=== PATIENT | male | born 1995 | race Two or more races ===

== ENCOUNTER 2022-06-15 10:26 | Emergency (ER) | payer BC ==
[~2022-06-15] VITALS: Ht 182.9 cm; Wt 88.5 kg
[2022-06-15 10:57] VITALS: BP 140/81
[2022-06-15] MEDS ORDERED: SULF1TAB47 PO (11:14)
--- NOTE | 2022-06-15 11:19 | NUR ---
Patient discharged to home in stable condition. Written and verbal after care instructions given. Patient verbalizes understanding of instruction.
[2022-06-15] MEDS ORDERED: CEPH500C2 PO (20:43)
== END 2022-06-15 11:19 | disposition home or self-care (01) ==
LOC: ER 10:35
DX: L03.114 Cellulitis of left upper limb (principal)

== ENCOUNTER 2022-06-15 19:12 | Emergency (ER) | payer BC ==
[~2022-06-15] VITALS: Ht 167.6 cm; Wt 88.5 kg
[~2022-06-15 19:12] MED LIST: SULF1TAB47 PO
[2022-06-15 20:28] VITALS: BP 131/70
[2022-06-15] MEDS ORDERED: CEPH500C2 PO (20:43)
[2022-06-15] MEDS ORDERED: CEFTRIAXONE 1 G VIAL ONE (20:51)
[2022-06-15] MEDS ORDERED: CEFTRIAXONE 1 G VIAL IM ONE (21:00)
== END 2022-06-15 21:01 | disposition home or self-care (01) ==
LOC: ER 19:14
DX: L03.114 Cellulitis of left upper limb (principal); Z60.2 Problems related to living alone
CPT/HCPCS: 99283; 96372; J0696

== ENCOUNTER 2022-07-30 11:13 | Emergency (ER) | payer BC, MEDICAID ==
[~2022-07-30] VITALS: Ht 182.9 cm; Wt 88.5 kg
[~2022-07-30 11:13] MED LIST changes: +CEPH500C2 PO
[2022-07-30 11:21] VITALS: BP 150/81
--- NOTE | 2022-07-30 11:22 | NUR ---
THE PATIENT BIBS FOR C/O PENILE RASH AND ITCH x 3 DAYS. WILL CONTINUE TO MONITOR THE PATIENT.
--- NOTE | 2022-07-30 11:26 | NUR ---
DR ATKINS AT THE BEDSIDE
[2022-07-30] MEDS ORDERED: CLOT12CR TP (11:33)
[2022-07-30] MEDS ORDERED: ACYC200C31 PO (11:33)
== END 2022-07-30 11:39 | disposition home or self-care (01) ==
LOC: ER 11:21
DX: A64 Unspecified sexually transmitted disease (principal); Z60.2 Problems related to living alone; Z79.899 Other long term (current) drug therapy

== ENCOUNTER 2022-10-03 12:21 | Emergency (ER) | payer MEDICAID, OTHER ==
[~2022-10-03] VITALS: Ht 182.9 cm; Wt 88.5 kg
[~2022-10-03 12:21] MED LIST changes: +ACYC200C31 PO; +CLOT12CR TP
[2022-10-03 12:53] VITALS: BP 134/72
--- NOTE | 2022-10-03 12:55 | NUR ---
BIBS W/ C/O RASH ON INGUINAL AREA. TO ER BED 16.
[2022-10-03] MEDS ORDERED: ACYC200C31 PO (13:06)
--- NOTE | 2022-10-03 13:45 | NUR ---
Patient discharged to home in stable condition. Written and verbal after care instructions given. Patient verbalizes understanding of instruction.
== END 2022-10-03 13:45 | disposition home or self-care (01) ==
LOC: ER 12:29
DX: B00.9 Herpesviral infection, unspecified (principal); Z60.2 Problems related to living alone; Z79.899 Other long term (current) drug therapy

== ENCOUNTER 2022-11-16 20:25 | Emergency (ER) | payer OTHER ==
[~2022-11-16] VITALS: Ht 193 cm; Wt 93.0 kg
[2022-11-16 20:47] VITALS: BP 138/72
--- NOTE | 2022-11-16 20:47 | NUR ---
BIBSELF C/O RIGHT UPPER ARM REDNESS
[2022-11-16] MEDS ORDERED: ACYC200C31 PO (21:17)
[2022-11-16] MEDS ORDERED: CEPH500T PO (21:17)
[2022-11-16] MEDS ORDERED: CEPHALEXIN MONOHYDRATE 500 MG CAPSULE PO ONE (21:33)
[2022-11-16] MEDS: CEPHALEXIN MONOHYDRATE 500 MG CAPSULE PO ONE (21:34)
--- NOTE | 2022-11-16 21:34 | NUR ---
Patient discharged to home in stable condition. RX Written and verbal after care instructions given. Patient verbalizes understanding of instruction.
== END 2022-11-16 21:45 | disposition home or self-care (01) ==
LOC: ER 20:26
DX: L03.113 Cellulitis of right upper limb (principal); Z60.2 Problems related to living alone; Z79.899 Other long term (current) drug therapy

== ENCOUNTER 2023-01-03 16:39 | Emergency (ER) | payer OTHER ==
[~2023-01-03] VITALS: Ht 193 cm; Wt 95.3 kg
[~2023-01-03 16:39] MED LIST changes: +CEPH500T PO
[2023-01-03 16:52] VITALS: BP 127/88
[2023-01-03] MEDS ORDERED: CEPH500T PO (17:14)
[2023-01-03] MEDS ORDERED: ACYC200C31 PO (17:14)
[2023-01-03] MEDS ORDERED: SULF1TAB48 PO (17:14)
--- NOTE | 2023-01-03 17:20 | NUR ---
Patient discharged to home in stable condition. Written and verbal after care instructions given. Patient verbalizes understanding of instruction.
== END 2023-01-03 17:20 | disposition home or self-care (01) ==
LOC: ER 16:52
DX: L03.114 Cellulitis of left upper limb (principal); B00.9 Herpesviral infection, unspecified; Z60.2 Problems related to living alone; Z79.899 Other long term (current) drug therapy